=== PATIENT | female | born 1945 | race Caucasian/White ===

== ENCOUNTER 2018-11-10 21:27 | Emergency (ER) | payer OTHER ==
[~2018-11-10] VITALS: Ht 162.6 cm; Wt 117.9 kg
[~2018-11-10 21:27] MED LIST: ADULT LOW DOSE81 MG PO; ATENOLOL 25MG T25 MG PG; FISH OIL 1,0001 EAC5 PO; HCTZ PO; LISINOPRIL40 MG PO; PAIN MED PO; TRAMADOL 50 MG50 MG PO; TUMS E.S.750 MG PO; VITAMIN D400 UNI1 PO; ZOFRAN
[2018-11-10] MEDS ORDERED: TYLENOL325 MG PO (21:34)
[2018-11-10] MEDS ORDERED: FLOMAX0.4 MG PO (21:34)
[2018-11-10] MEDS ORDERED: LIQUITEARS15 ML OPHTHALMIC (21:34)
[2018-11-10] MEDS ORDERED: NEURONTIN 300300 M1 PO (21:35)
[2018-11-10] MEDS ORDERED: ALLOPURINOL 10100 M1 PO (21:35)
[2018-11-10] MEDS ORDERED: NORVASC5 MG PO (21:41)
[2018-11-10] MEDS ORDERED: ZOFRAN ODT4 MG DISSOLVE (21:41)
[2018-11-10] MEDS ORDERED: FEMARA2.5 MG PO (21:41)
[2018-11-10] MEDS ORDERED: DILAUDID 4 MG TA4 M1 PO (21:42)
[2018-11-10] MEDS ORDERED: BAZA CR.1 E1 TOP (21:43)
[2018-11-10] MEDS ORDERED: PROBIOTIC1 EAC1 PO (21:43)
[2018-11-10] MEDS ORDERED: TIZANIDINE HCL2 M1 PO (21:44)
[2018-11-11 00:18] VITALS: BP 185/84
== END 2018-11-11 00:19 | disposition home or self-care (01) ==
LOC: ER 21:27
DX: M54.5 Low back pain (principal); G89.29 Other chronic pain; I10 Essential (primary) hypertension; J45.909 Unspecified asthma, uncomplicated; M06.9 Rheumatoid arthritis, unspecified; E66.9 Obesity, unspecified; Z68.41 Body mass index [BMI] 40.0-44.9, adult; Z88.0 Allergy status to penicillin; Z88.2 Allergy status to sulfonamides; Z87.442 Personal history of urinary calculi